=== PATIENT | male | born 1990 | race Caucasian/White ===

== ENCOUNTER 2017-10-26 02:27 | Emergency (ER) | payer SELFPAY ==
[~2017-10-26] VITALS: Ht 170.2 cm; Wt 77.1 kg
[~2017-10-26 02:27] MED LIST: LEVEMIR FL100 UNIT/1 SUBQ; NKM; NOVOLOG100 UNITS1 SUBQ
[2017-10-26 02:39] VITALS: BP 140/89
[2017-10-26] MEDS ORDERED: Tetanus/Diptheria/Pertussis Vaccine 0.5ml Syr IM ONE (02:45)
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
[2017-10-26] MEDS ORDERED: IBUPROFEN600 MG ORAL (04:34)
[2017-10-26 04:35] VITALS: BP 140/89
[2017-10-26 04:50] VITALS: BP 140/89
--- NOTE | 2017-10-26 09:19 | Diagnostic Imaging Report ---
Indication: Headache. Trauma Technique: Contiguous 5 mm thick transaxial imaging of the head obtained in a Siemens Sensation [address] scanner. Soft tissue and bone windows generated. Automatic Exposure Control was utilized. Total Dose length Product (DLP): 1400.[address] Dose Index Volume (CTDIvol): 70.38 mGy Comparison: none Findings: The size and configuration of the cortical sulci, basal cisterns, and ventricles are within normal limits for age. There is no mass effect, midline shift, or edema identified. There is no evidence of acute hemorrhage or abnormal intra-axial or extra-axial fluid collections. The bones and soft tissues are unremarkable. Impression: No mass effect, edema or acute bleed. [facility] has communicated the preliminary results to the Emergency Department. Their findings are largely concordant with this report. The CT scanner at [facility] is accredited by the [employer] and the scans are performed using dose optimization techniques as appropriate to a performed exam including Automatic Exposure control.
== END 2017-10-26 04:53 | disposition home or self-care (01) ==
LOC: EDBD 02:27 → EMR 02:40
DX: S01.01XA Laceration without foreign body of scalp, initial encounter (principal); E10.65 Type 1 diabetes mellitus with hyperglycemia; Y04.2XXA Assault by strike against or bumped into by another person, initial encounter; Z23 Encounter for immunization
CPT/HCPCS: 12002; 70450; 82962; 90471; 90715; 96372; 99284; J1815

== ENCOUNTER 2017-11-02 19:23 | Emergency (ER) | payer SELFPAY ==
[~2017-11-02] VITALS: Ht 170.2 cm; Wt 77.1 kg
[~2017-11-02 19:23] MED LIST changes: +IBUPROFEN600 MG ORAL
[2017-11-02 19:35] VITALS: BP 118/74
--- NOTE | 2017-11-02 19:40 | Emergency Room Report ---
History of Present Illness General Chief Complaint: Wound Recheck/Suture Removal Source: Patient, Medical Record Present Illness HPI Patient presents for staple removal and recheck Patient has mitch put in one week ago Denies any pain denies any discharge Feels that the area has been healing well denies any neck pain or photophobia Allergies: Coded Allergies: No Known Allergies (Unverified , 11/05/15) Patient History Past Medical History: see triage record Pertinent Family History: none Reviewed Nursing Documentation: PMH: Agreed; PSxH: Agreed Nursing Documentation-PMH Hx Cardiac Problems: No Hx Diabetes: Yes - Type 1 Hx Cancer: No Hx Gastrointestinal Problems: Yes Hx Neurological Problems: Yes Hx Headaches: Yes Hx Weakness: Yes Review of Systems All Other Systems: negative except mentioned in HPI Physical Exam Vital Signs Date Time Temp Pulse Resp B/P (MAP) Pulse Ox O2 Delivery O2 Flow Rate FiO2 11/02/17 19:27 98.0 89 18 121/76 99 Room Air 98.1 Sp02 EP Interpretation: reviewed, normal General Appearance: well appearing, no apparent distress Head: normocephalic, atraumatic Eyes: bilateral eye PERRL, bilateral eye EOMI ENT: normal pharynx Cardiovascular #1: regular rate, rhythm, no edema Gastrointestinal: non tender Musculoskeletal: normal inspection Neurologic: alert, oriented x3 Skin: other - Healing mitch Lymphatic: no adenopathy Medical Decision Making Diagnostic Impression: Primary Impression: Suture check Additional Impression: suture removal ER Course [place] were placed approximately one week ago At this time there are [address] No signs of any dehiscence area appears to be healing well Initially every other staple was removed and further evaluated Still no signs of dehiscence were appreciated and therefore the rest of the mitch were removed total of 74 removed in the usual fashion without any incidents Patient tolerated the procedure well At this time is stable for close outpatient follow-up Last Vital Signs Date Time Temp Pulse Resp B/P (MAP) Pulse Ox O2 Delivery O2 Flow Rate FiO2 11/02/17 19:27 98.0 89 18 121/76 99 Room Air 98.1 Status: improved Disposition: HOME, SELF-CARE Condition: Improved Patient Instructions: Wound Closure Removal, Wound Check Additional Instructions: Patient is provided with the discharge instructions notified to follow up with primary doctor in the next 2-3 days otherwise return to the er with any worsening symptoms. Please note that this report is being documented using DRAGON technology. This can lead to erroneous entry secondary to incorrect interpretation by the dictating instrument. Edgar Martel DO Nov 02, 2017 19:40
[2017-11-02 19:55] VITALS: BP 122/78
[2017-11-02 19:58] VITALS: BP 122/78
== END 2017-11-02 19:58 | disposition home or self-care (01) ==
LOC: EMR 19:45
DX: S01.01XD Laceration without foreign body of scalp, subsequent encounter (principal); E10.9 Type 1 diabetes mellitus without complications; X58.XXXD Exposure to other specified factors, subsequent encounter; Z48.02 Encounter for removal of sutures
CPT/HCPCS: 99281